=== PATIENT | female | born 1945 | race Caucasian/White ===

== ENCOUNTER → 2018-04-30 10:16 | Outpatient (CLI) | payer MEDICARE, OTHER, SELFPAY ==
--- NOTE | 2018-04-30 | DI.MG.S_ITS ---
BILATERAL DIGITAL SCREENING MAMMOGRAM 3D/2D WITH CAD: 04/30/2018 CLINICAL: Routine screening. Family history of breast cancer. Comparison is made to exams dated: 04/10/2017 mammogram, 04/06/2016 mammogram, and 04/05/2015 mammogram - [facility]. The tissue of both breasts is heterogeneously dense. This may lower the sensitivity of mammography. Current study was also evaluated with a Computer Aided Detection (CAD) system. No significant masses, calcifications, or other findings are seen in either breast. There has been no significant interval change. IMPRESSION: NEGATIVE There is no mammographic evidence of malignancy. A 1 year screening mammogram is recommended. This exam was interpreted at Station ID: [id number]. NOTE: For mammograms, a report in lay terms will be sent to the patient. Approximately 15% of breast malignancies will not be visualized mammographically. In the management of a palpable breast mass, a negative mammogram must not discourage biopsy of a clinically suspicious lesion. Electronically Signed By: Mary Jo mathews/dean:04/30/2018 10:56:38 letter sent: Normal Exam ACR BI-RADS Category 1: Negative 3341F
== END ==
PROVIDERS: Family Provider Physician Assistant; PCP Physician Assistant; Visit Provider Physician Assistant
DX: Z12.31 Encounter for screening mammogram for malignant neoplasm of breast (principal); Z80.3 Family history of malignant neoplasm of breast
CPT/HCPCS: 77063; 77067

== ENCOUNTER → 2019-02-28 08:03 | Outpatient (CLI) | payer MEDICARE, OTHER, SELFPAY ==
--- NOTE | 2019-02-28 | DI.US.S_ITS ---
ULTRASOUND OF LEFT BREAST: 02/28/2019 CLINICAL: Focal left breast pain. Comparison is made to exams dated: 02/28/2019 mammogram, 04/30/2018 mammogram, 04/10/2017 mammogram, 04/06/2016 mammogram, and 04/05/2015 mammogram - [facility]. Color flow and real-time ultrasound of the left breast were performed. Martinez scale images of the real-time examination were reviewed. No abnormalities were seen sonographically in the left breast. incidental note of a few subareolar ectatic ducts without internal debris or intraluminal filling defects. This is likely physiologic. IMPRESSION: BENIGN There is no sonographic evidence of malignancy. There is no abnormality seen in the left breast to correspond with the area of clinical concern and pain in the sub-areolar depth, however, clinical followup is recommended for persistent symptoms. A 1 year screening mammogram is recommended. This exam was interpreted at Station ID: [id number]. Electronically Signed By: Manish Randall M.D. at/:02/28/2019 09:40:54 letter sent: Normal Exam Ultrasound BI-RADS: 2 Benign
--- NOTE | 2019-02-28 | DI.MG.S_ITS ---
BILATERAL DIGITAL DIAGNOSTIC MAMMOGRAM 3D/2D: 02/28/2019 CLINICAL: Left breast pain. Comparison is made to exams dated: 04/30/2018 mammogram, 04/10/2017 mammogram, and 04/06/2016 mammogram - [facility]. The tissue of both breasts is heterogeneously dense. This may lower the sensitivity of mammography. No significant masses, calcifications, or other findings are seen in either breast. IMPRESSION: INCOMPLETE: NEEDS ADDITIONAL IMAGING EVALUATION There is no abnormality seen in the left breast to correspond with the area of clinical concern and pain indicated by triangular marker in the sub-areolar depth, however, ultrasound is recommended which is scheduled to immediately follow this exam. This exam was interpreted at Station ID: [id number]. NOTE: For mammograms, a report in lay terms will be sent to the patient. Approximately 15% of breast malignancies will not be visualized mammographically. In the management of a palpable breast mass, a negative mammogram must not discourage biopsy of a clinically suspicious lesion. Electronically Signed By: Manish Randall M.D. aty/:02/28/2019 09:01:24 ACR BI-RADS Category 0: Incomplete 3340F
== END ==
PROVIDERS: Family Provider Physician Assistant; PCP Physician Assistant; Visit Provider Internal Medicine
DX: R92.8 Other abnormal and inconclusive findings on diagnostic imaging of breast (principal); N64.4 Mastodynia
CPT/HCPCS: 76642; 77066; G0279

== ENCOUNTER → 2019-04-01 13:21 | Outpatient (CLI) | payer MEDICARE, OTHER, SELFPAY ==
[2019-04-03 16:35] LABS: Cancer (Carbohydrate) Ag 19-9 16 U/mL (< 34)
== END ==
PROVIDERS: Family Provider Physician Assistant; PCP Physician Assistant; Visit Provider Internal Medicine
DX: Z80.0 Family history of malignant neoplasm of digestive organs (principal)
CPT/HCPCS: 36415; 86301

== ENCOUNTER → 2019-10-07 17:15 | Outpatient (ROUT) | payer MEDICARE, OTHER, SELFPAY ==
[2019-10-07 17:26] LABS: Add Manual Diff / Slide Review NO; Basophils Absolute Auto 100 /uL (0-100); Basophils Percent Auto 0.9 % (0-2); Eosinophils Absolute Auto 0 /uL (0-450); Eosinophils Percent Auto 0.8 % (2-4); Hematocrit 41.3 % (36-46); Hemoglobin 13.9 g/dL (12.0-16.0); Lymphocytes Absolute Auto 1500 /uL (1100-4500); Lymphocytes Percent Auto 23.7 % (25-40); Mean Corpuscular HGB Conc 33.7 % (30-36); Mean Corpuscular Hemoglobin 31.3 PG (26-34); Mean Corpuscular Volume 92.9 fL (80-100); Monocytes Absolute Auto 500 /uL (0-900); Monocytes Percent Auto 7.6 % (3-14); Neutrophils Absolute Auto 4300 /uL (1500-7000); Platelet Count 249 X10^3/uL (150-400); Red Blood Cell Count 4.45 X10^6/uL (4.0-5.2); White Blood Cell Count 6.3 X10^3/uL (4.5-11.0)
[2019-10-07 17:36] LABS: Alanine Aminotransferase 22 IU/L (<35); Albumin 4.3 g/dL (3.5-5.0); Albumin Globulin Ratio 1.4 (1.0-2.8); Alkaline Phosphatase 67 U/L (38-126); Aspartate Aminotransferase 33 IU/L (14-36); BUN Creatinine Ratio 23.8 (6-22); Bilirubin Total 0.9 mg/dL (0.2-1.3); Blood Urea Nitrogen 19 mg/dL (7-17); Calcium 9.8 mg/dL (8.4-10.2); Carbon Dioxide 28 mmol/L (22-32); Chloride 103 mmol/L (98-107); Cholesterol 239 mg/dL (140-199); Estimated Glomerular Filt Rate > 60.0 mL/min (>60); Glucose 139 mg/dL (80-110); HDL Cholesterol 101 mg/dL (40-60); HEMOLYSIS 15 (0-50); LDL Cholesterol Calculated 112 mg/dL (<100); Potassium 4.5 mmol/L (3.4-5.1); Sodium 138 mmol/L (137-145); Total Protein 7.3 g/dL (6.3-8.2); Triglycerides 130 mg/dL (35-150)
[2019-10-07 18:04] LABS: TSH w/ Reflex to FT4 1.35 uIU/mL (0.47-4.68)
== END ==
PROVIDERS: Family Provider Physician Assistant; PCP Physician Assistant; Visit Provider Physician Assistant
DX: E78.2 Mixed hyperlipidemia (principal); E03.9 Hypothyroidism, unspecified
CPT/HCPCS: 80053; 80061; 84443; 85025

== ENCOUNTER → 2020-03-02 15:05 | Outpatient (CLI) | payer MEDICARE, OTHER, SELFPAY ==
--- NOTE | 2020-03-02 | DI.MG.S_ITS ---
BILATERAL DIGITAL SCREENING MAMMOGRAM 3D/2D WITH CAD: 03/02/2020 CLINICAL: Routine screening. Family history of breast cancer. Comparison is made to exams dated: 02/28/2019 mammogram, 04/30/2018 mammogram, 04/10/2017 mammogram, 02/17/2014 mammogram, and 04/05/2015 mammogram - [facility]. The tissue of both breasts is heterogeneously dense. This may lower the sensitivity of mammography. Current study was also evaluated with a Computer Aided Detection (CAD) system. No significant masses, calcifications, or other findings are seen in either breast. There has been no significant interval change. IMPRESSION: NEGATIVE There is no mammographic evidence of malignancy. A 1 year screening mammogram is recommended. This exam was interpreted at Station ID: [id number]. NOTE: For mammograms, a report in lay terms will be sent to the patient. Approximately 15% of breast malignancies will not be visualized mammographically. In the management of a palpable breast mass, a negative mammogram must not discourage biopsy of a clinically suspicious lesion. Electronically Signed By: Manish barksdale/dean:03/02/2020 17:17:28 letter sent: Normal Exam ACR BI-RADS Category 1: Negative 3341F
== END ==
PROVIDERS: Family Provider Physician Assistant; PCP Physician Assistant; Referring Provider Physician Assistant; Visit Provider Physician Assistant
DX: Z12.31 Encounter for screening mammogram for malignant neoplasm of breast (principal); Z80.3 Family history of malignant neoplasm of breast
CPT/HCPCS: 77063; 77067

== ENCOUNTER → 2020-12-21 14:36 | Outpatient (CLI) | payer MEDICARE, OTHER, SELFPAY ==
[2020-12-21 18:15] LABS: Add Manual Diff / Slide Review NO; Basophils Absolute Auto 0 /uL (0-100); Basophils Percent Auto 0.6 % (0-2); Eosinophils Absolute Auto 100 /uL (0-450); Eosinophils Percent Auto 1.4 % (2-4); Hematocrit 38.5 % (36-46); Hemoglobin 12.9 g/dL (12.0-16.0); Lymphocytes Absolute Auto 1900 /uL (1100-4500); Lymphocytes Percent Auto 27.4 % (25-40); Mean Corpuscular HGB Conc 33.5 % (30-36); Mean Corpuscular Hemoglobin 31.2 PG (26-34); Mean Corpuscular Volume 93.2 fL (80-100); Monocytes Absolute Auto 600 /uL (0-900); Monocytes Percent Auto 8.2 % (3-14); Neutrophils Absolute Auto 4400 /uL (1500-7000); Neutrophils Percent Auto 62.4 % (50-75); Platelet Count 230 X10^3/uL (150-400); Red Blood Cell Count 4.13 X10^6/uL (4.0-5.2); Red Cell Distribution Width 13.4 % (11.6-14.8); White Blood Cell Count 7.1 X10^3/uL (4.5-11.0)
[2020-12-21 18:27] LABS: Alanine Aminotransferase 15 IU/L (<35); Albumin 4.2 g/dL (3.5-5.0); Albumin Globulin Ratio 1.5 (1.0-2.8); Alkaline Phosphatase 61 U/L (38-126); Aspartate Aminotransferase 31 IU/L (14-36); BUN Creatinine Ratio 29.9 (6-22); Bilirubin Total 0.6 mg/dL (0.2-1.3); Blood Urea Nitrogen 23 mg/dL (7-17); Calcium 9.5 mg/dL (8.4-10.2); Carbon Dioxide 24 mmol/L (22-32); Chloride 105 mmol/L (98-107); Cholesterol 237 mg/dL (140-199); Estimated Glomerular Filt Rate > 60.0 mL/min (>60); Globulin 2.8 g/dL (1.7-4.1); Glucose 93 mg/dL (80-110); HDL Cholesterol 105 mg/dL (40-60); HEMOLYSIS < 15 (0-50); LDL Cholesterol Calculated 116 mg/dL (<100); Potassium 4.1 mmol/L (3.4-5.1); Sodium 135 mmol/L (137-145); Triglycerides 78 mg/dL (35-150)
[2020-12-21 18:51] LABS: Vitamin D 25 Hydroxy (D3) 25.2 ng/mL (30.0-100.0)
[2020-12-21 18:56] LABS: TSH w/ Reflex to FT4 1.36 uIU/mL (0.47-4.68)
== END ==
PROVIDERS: Family Provider Physician Assistant; PCP Physician Assistant; Referring Provider Physician Assistant; Visit Provider Physician Assistant
DX: E03.9 Hypothyroidism, unspecified (principal); E55.9 Vitamin D deficiency, unspecified; E78.2 Mixed hyperlipidemia
CPT/HCPCS: 36415; 80053; 80061; 82306; 84443; 85025

== ENCOUNTER → 2021-03-30 15:10 | Outpatient (CLI) | payer MEDICARE, OTHER, SELFPAY ==
--- NOTE | 2021-03-30 15:14 | DI.MG.S_ITS ---
BILATERAL DIGITAL SCREENING MAMMOGRAM 3D/2D WITH CAD: 03/30/2021 CLINICAL: Routine screening. Family history of breast cancer. Comparison is made to exams dated: 03/02/2020 mammogram, 02/28/2019 mammogram, and 04/30/2018 mammogram - [facility]. The tissue of both breasts is heterogeneously dense. This may lower the sensitivity of mammography. Current study was also evaluated with a Computer Aided Detection (CAD) system. There are mole markers on both breasts. No significant masses, calcifications, or other findings are seen in either breast. There has been no significant interval change. IMPRESSION: NEGATIVE There is no mammographic evidence of malignancy. A 1 year screening mammogram is recommended. This exam was interpreted at Station ID: [id number]. NOTE: For mammograms, a report in lay terms will be sent to the patient. Approximately 15% of breast malignancies will not be visualized mammographically. In the management of a palpable breast mass, a negative mammogram must not discourage biopsy of a clinically suspicious lesion. Electronically Signed By: April balbuena/dean:03/30/2021 17:47:12 letter sent: Normal Exam ACR BI-RADS Category 1: Negative 3341F
== END ==
PROVIDERS: Family Provider Physician Assistant; PCP Physician Assistant; Referring Provider Physician Assistant; Visit Provider Physician Assistant
DX: Z12.31 Encounter for screening mammogram for malignant neoplasm of breast (principal); Z80.3 Family history of malignant neoplasm of breast
CPT/HCPCS: 77063; 77067

== ENCOUNTER → 2022-01-20 14:29 | Outpatient (CLI) | payer MEDICARE, OTHER, SELFPAY | PROVIDERS: Family Provider Physician Assistant; PCP Physician Assistant; Referring Provider Physician Assistant; Visit Provider Physician Assistant | DX: Z78.0 Asymptomatic menopausal state (principal); Z13.820 Encounter for screening for osteoporosis; M85.851 Other specified disorders of bone density and structure, right thigh; Z79.890 Hormone replacement therapy | CPT/HCPCS: 77080 ==

== ENCOUNTER → 2022-04-04 14:41 | Outpatient (CLI) | payer MEDICARE, OTHER, SELFPAY ==
--- NOTE | 2022-04-04 | DI.MG.S_ITS ---
BILATERAL DIGITAL SCREENING MAMMOGRAM 3D/2D WITH CAD: 04/04/2022 CLINICAL: Routine screening. Family history of breast cancer. Comparison is made to exams dated: 03/30/2021 mammogram, 03/02/2020 mammogram, and 02/28/2019 mammogram - [facility]. The tissue of both breasts is heterogeneously dense. This may lower the sensitivity of mammography. Current study was also evaluated with a Computer Aided Detection (CAD) system. There are mole markers on both breasts. No significant masses, calcifications, or other findings are seen in either breast. There has been no significant interval change. IMPRESSION: NEGATIVE There is no mammographic evidence of malignancy. A 1 year screening mammogram is recommended. Based on the Tyrer Cuzick model (a risk assessment model) the patient's lifetime risk is 7.3% and her 10 year risk is 0.0%. According to the ACR, ACS, and NCCN guidelines, an annual breast MRI exam along with mammogram is recommended if the patient's lifetime risk is 20% or greater. This exam was interpreted at Station ID: [id number]. NOTE: For mammograms, a report in lay terms will be sent to the patient. Approximately 15% of breast malignancies will not be visualized mammographically. In the management of a palpable breast mass, a negative mammogram must not discourage biopsy of a clinically suspicious lesion. Electronically Signed By: Rene zheng/dean:04/05/2022 09:08:34 letter sent: Normal Exam ACR BI-RADS Category 1: Negative 3341F
== END ==
PROVIDERS: Family Provider Physician Assistant; PCP Physician Assistant; Referring Provider Physician Assistant; Visit Provider Physician Assistant
DX: Z12.31 Encounter for screening mammogram for malignant neoplasm of breast (principal); Z80.3 Family history of malignant neoplasm of breast
CPT/HCPCS: 77063; 77067

== ENCOUNTER → 2023-01-02 09:58 | Outpatient (CLI) | payer MEDICARE, OTHER, SELFPAY ==
[2023-01-02 10:42] LABS: Alanine Aminotransferase 16 IU/L (<35); Albumin 4.2 g/dL (3.5-5.0); Albumin Globulin Ratio 1.2 (1.0-2.8); Alkaline Phosphatase 63 U/L (38-126); Aspartate Aminotransferase 24 IU/L (14-36); BUN Creatinine Ratio 20.5 (6-22); Bilirubin Total 1.1 mg/dL (0.2-1.3); Blood Urea Nitrogen 18 mg/dL (7-17); Calcium 9.4 mg/dL (8.4-10.2); Carbon Dioxide 32 mmol/L (22-32); Chloride 104 mmol/L (98-107); Cholesterol 260 mg/dL (140-199); Estimated Glomerular Filt Rate > 60 mL/min (>60); Globulin 3.4 g/dL (1.7-4.1); Glucose 104 mg/dL (80-110); HDL Cholesterol 107 mg/dL (40-60); HEMOLYSIS < 15 (0-50); LDL Cholesterol Calculated 132 mg/dL (<100); Potassium 4.2 mmol/L (3.4-5.1); Sodium 138 mmol/L (137-145); Total Protein 7.6 g/dL (6.3-8.2); Triglycerides 104 mg/dL (35-150)
[2023-01-02 10:55] LABS: Vitamin D 25 Hydroxy (D3) 23.6 ng/mL (30.0-100.0)
[2023-01-02 11:09] LABS: Thyroid Stimulating Hormone 1.16 uIU/mL (0.47-4.68)
[2023-01-02 11:27] LABS: Hep C Virus Ab w/Reflex Quant NEGATIVE s/c (NEGATIVE)
== END ==
PROVIDERS: Family Provider Physician Assistant; PCP Nurse Practitioner; Referring Provider Nurse Practitioner; Visit Provider Nurse Practitioner
DX: E03.9 Hypothyroidism, unspecified (principal); E55.9 Vitamin D deficiency, unspecified; Z11.59 Encounter for screening for other viral diseases; E78.5 Hyperlipidemia, unspecified; Z79.899 Other long term (current) drug therapy
CPT/HCPCS: 36415; 80053; 80061; 82306; 84439; 84443; 84481; 86803

== ENCOUNTER → 2023-02-28 09:10 | Outpatient (CLI) | payer MEDICARE, OTHER, SELFPAY ==
--- NOTE | 2023-02-28 09:11 | DI.ECHO.S_ITS ---
[facility] +---------+ : : [address] : : : : [id number] : : : : Phone: [phone] Echocardiogram Report + + :Name: DEQUAN GREEN Study Date: 02/28/2023 Height: 65 in : :[facility] ReadingLocation: Weight: 155 lb : : Gender: Female BSA: 1.8 m2 : :: 1945 Age: 77 yrs BP: 135/67 mmHg: :Reason For Study: HYPERTENSION : :Ordering Physician: BARB, : :MAX Performed By: Mellisa Bahena : :Referring: MAX DAY : + + Interpretation Summary The left ventricle is normal in size and wall thickness. The ejection fraction is estimated to be 65-70%. Previous LVEF 60 to 65%. The right ventricle is grossly normal size. The right ventricular systolic function is normal. There is mild to moderate mitral regurgitation. Compared to the prior echo study, there has been an increase in the severity of mitral regurgitation. Previously mild MR. There is moderate tricuspid regurgitation. Previously mild TR. Compared to the prior echo exam, there has been an increase in TR severity. The right ventricular systolic pressure is estimated to be at least 29 mmHg based on an estimated right atrial pressure of 3 mm Hg. Previously 38 mmHg. Compared to the prior echo exam, there has been a decrease in the severity of pulmonary hypertension. Procedure: A two-dimensional transthoracic echocardiogram with color flow and Doppler was performed. The study quality was technically adequate. Comparison is made with the echocardiogram of 08/29/2016. The patient had occasional PVCs during the exam. The patient was in sinus rhythm with heart rates between 57-62 bpm during the exam. Left Ventricle: The left ventricle is normal in size and wall thickness. There is no thrombus. The ejection fraction is estimated to be 65-70%. There are no focal wall motion abnormalities. MV E/A: 0.82 Med Peak E' Osito: 4.8 cm/sec E/E' med: 18.1. Right Ventricle: The right ventricle is grossly normal size. The right ventricular systolic function is normal. Atria: The left atrium is mildly dilated. There has been no significant change since the previous study. Right atrial size is normal. There is no Doppler evidence for an interatrial shunt. Mitral Valve: The mitral valve leaflets appear mildly thickened, but open well. There is mild mitral annular calcification. There is mild to moderate mitral regurgitation. Compared to the prior echo study, there has been an increase in the severity of mitral regurgitation. Aortic Valve: The aortic valve is trileaflet. The aortic valve opens well. There is no aortic valve stenosis. No aortic regurgitation is present. Tricuspid Valve: The tricuspid valve is normal. There is moderate tricuspid regurgitation. The right ventricular systolic pressure is estimated to be at least 29 mmHg based on an estimated right atrial pressure of 3 mm Hg. Compared to the prior echo exam, there has been an increase in TR severity. Compared to the prior echo exam, there has been a decrease in the severity of pulmonary hypertension. Pulmonic Valve: The pulmonic valve is not well visualized. There is trace pulmonic regurgitation. Great Vessels: The aortic root is normal size. The dimensions of the ascending aorta are normal. The IVC is of normal diameter and collapses greater than 50% with a sniff. This suggests a low right atrial pressure of 3 mm Hg. Pericardium/ Pleura There is no pericardial effusion. There is no pleural effusion. MMode/2D Measurements & Calculations LVIDd: 4.7 cm LVOT diam: 1.9 cm LVIDs: 3.0 cm Ao root diam: 2.7 cm FS: 36.4 % asc Aorta Diam: 2.7 cm EPSS: 0.42 cm Ao Arch Diam (Prox Trans): 2.5 cm IVSd: 0.75 cm LVPWd: 0.77 cm LV coulter. diameter/BSA (cm/m^2): 2.7 LV sys. diameter/BSA (cm/m^2): 1.7 LA A2 area: 18.4 cm2 RA long axis: 4.8 cm LA A4 area: 19.1 cm2 RA area: 15.4 cm2 LA length (vol): 5.0 cm RA vol: 42.2 ml LA vol: 60.1 ml RA : 23.7 ml/m2 LA vol index: 33.9 ml/m2 IVC diam: 1.4 cm TAPSE: 2.2 cm Doppler Measurements & Calculations Ao V2 max: 139.0 cm/sec LVOT Max Osito: 99.7 cm/sec Ao V2 mean: 98.7 cm/sec LV V1 max P.0 mmHg Ao max P.7 mmHg LV V1 VTI: 22.0 cm Ao mean P.3 mmHg CIRILO(I,D): 1.9 cm2 Ao V2 VTI: 32.7 cm CIRILO(V,D): 2.0 cm2 sev ratio: 0.67 CIRILO indexed to BSA (cm^2/m^2): 1.0 MV E max osito: 87.0 cm/sec TR max osito: 255.2 cm/sec MV A max osito: 106.7 cm/sec TR max P.0 mmHg MV E/A: 0.82 PA V2 max: 89.0 cm/sec Med Peak E' Osito: 4.8 cm/sec PA V2 mean: 63.8 cm/sec E/E' med: 18.1 PA mean P.8 mmHg Lat Peak E' Osito: 6.1 cm/sec PA pr(Accel): 29.3 mmHg E/E' lat: 14.2 E/e' average: 16.2 MV dec time: 0.21 sec SV(LVOT): 60.7 ml Reading Physician:02:15 PM
== END ==
PROVIDERS: Family Provider Physician Assistant; PCP Nurse Practitioner; Referring Provider Nurse Practitioner; Visit Provider Nurse Practitioner
DX: I10 Essential (primary) hypertension (principal); I08.1 Rheumatic disorders of both mitral and tricuspid valves
CPT/HCPCS: 93306

== ENCOUNTER → 2023-03-12 12:45 | Outpatient (CLI) | payer MEDICARE, OTHER, SELFPAY | PROVIDERS: Family Provider Physician Assistant; PCP Nurse Practitioner; Referring Provider Nurse Practitioner; Visit Provider Nurse Practitioner | DX: I10 Essential (primary) hypertension (principal) | CPT/HCPCS: 93005 ==

== ENCOUNTER → 2023-03-19 15:06 | Outpatient (CLI) | payer MEDICARE, OTHER, SELFPAY | PROVIDERS: Family Provider Physician Assistant; PCP Nurse Practitioner; Referring Provider Nurse Practitioner; Visit Provider Nurse Practitioner | DX: I27.20 Pulmonary hypertension, unspecified (principal); I07.1 Rheumatic tricuspid insufficiency; I34.0 Nonrheumatic mitral (valve) insufficiency | CPT/HCPCS: 93242 ==

== ENCOUNTER 2023-08-31 10:41 | Emergency (ER) | payer MEDICARE, OTHER, SELFPAY ==
[2023-08-31] VITALS (12 sets, daily range): BP systolic 161–193; BP diastolic 70–78; PULSE 54–68; RESP 14–21; TEMP 36.7; O2SAT 96–99; BMI 25.0
--- NOTE | 2023-08-31 10:54 | DI.RAD.S_ITS ---
PROCEDURE: XR CHEST 1V INDICATIONS: chest pain TECHNIQUE: One view of the chest was acquired. COMPARISON: [facility], , CHEST 1 VIEW, 09/04/2017, 15:18. FINDINGS: Surgical changes and devices: None. Lungs and pleura: Lungs are clear. No pleural effusions or pneumothorax. Mediastinum: Mediastinal contours appear normal. Heart size is normal. Bones and chest wall: No suspicious bony lesions. Overlying soft tissues appear unremarkable. IMPRESSION: No acute cardiopulmonary abnormality is seen. Dictated by: Mary Jo Marie M.D. on 08/31/2023 at 12:04 Approved by: Mary Jo Marie M.D. on 08/31/2023 at 12:04
[2023-08-31 11:27] LABS: Add Manual Diff / Slide Review NO; Basophils Absolute Auto 100 /uL (0-100); Basophils Percent Auto 1.1 % (0-2); Eosinophils Absolute Auto 100 /uL (0-450); Eosinophils Percent Auto 0.8 % (2-4); Hematocrit 38.6 % (36-46); Hemoglobin 13.1 g/dL (12.0-16.0); Lymphocytes Absolute Auto 1400 /uL (1100-4500); Lymphocytes Percent Auto 20.6 % (25-40); Mean Corpuscular HGB Conc 33.9 % (30-36); Mean Corpuscular Hemoglobin 31.1 PG (26-34); Mean Corpuscular Volume 91.7 fL (80-100); Monocytes Absolute Auto 600 /uL (0-900); Monocytes Percent Auto 8.5 % (3-14); Neutrophils Absolute Auto 4600 /uL (1500-7000); Platelet Count 234 X10^3/uL (150-400); Red Blood Cell Count 4.21 X10^6/uL (4.0-5.2); Red Cell Distribution Width 14.2 % (11.6-14.8); White Blood Cell Count 6.6 X10^3/uL (4.5-11.0)
[2023-08-31 11:39] LABS: Prothrombin Time 11.5 SECONDS (9.4-12.5)
[2023-08-31 11:41] LABS: PTT Partial Thromboplastin Tim 29 SECONDS (25.1-36.5)
[2023-08-31 11:48] LABS: Alanine Aminotransferase 27 IU/L (<35); Albumin 4.2 g/dL (3.5-5.0); Albumin Globulin Ratio 1.3 (1.0-2.8); Alkaline Phosphatase 105 U/L (38-126); Aspartate Aminotransferase 34 IU/L (14-36); BUN Creatinine Ratio 19.4 (6-22); Bilirubin Total 0.8 mg/dL (0.2-1.3); Blood Urea Nitrogen 20 mg/dL (7-17); Carbon Dioxide 27 mmol/L (22-32); Chloride 104 mmol/L (98-107); Creatine Kinase 62 U/L (30-135); Estimated Glomerular Filt Rate 55 mL/min (>60); Globulin 3.3 g/dL (1.7-4.1); Glucose 100 mg/dL (80-110); HEMOLYSIS < 15 (0-50); Lipase 384 U/L (23-300); Potassium 4.4 mmol/L (3.4-5.1); Sodium 137 mmol/L (137-145); Total Protein 7.5 g/dL (6.3-8.2)
[2023-08-31 11:56] LABS: Troponin I < 0.012 ng/mL (0.01-0.034)
--- NOTE | 2023-08-31 12:02 | ED_ITS ---
HPI - Dizziness General Chief Complaint: Dizziness Stated Complaint: dizziness Time Seen by Provider: 08/31/23 12:02 History of Present Illness HPI Narrative: Patient is 78-year-old female history of hypertension presenting today with dizziness. 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 She is not had vertigo previously she denies any chest pain or palpitations. She says that she was not drinking a lot a water and did not have a copy this morning. She is no numbness tingling or weakness. She has improved but still feels off. She is able to text on her phone without any difficulty. She had no facial droop or difficulty speaking. No fever no chills. 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 01/10/23 04/27/23 calcium carbonate 600 mg calcium 1,200 mg PO DAILY 01/10/23 04/27/23 (1,500 mg) tablet verapamil 180 mg 24 hr 180 mg PO DAILY 05/25/23 capsule,extended release olive leaf extract 250 mg capsule 250 mg PO DAILY 07/10/23 07/10/23 Previous Rx's Medication Instructions Recorded cholecalciferol (vitamin D3) 50 50 mcg PO DAILY #90 caps 01/10/23 mcg (2,000 unit) capsule estradiol 0.01% (0.1 mg/gram) 1 g vaginal 3XW #42.5 grams 01/10/23 vaginal cream (Estrace) Blood pressure cuff #1 ea 01/31/23 olmesartan 40 mg tablet 40 mg PO DAILY #90 tabs 04/24/23 levothyroxine 75 mcg tablet 75 mcg PO DAILY #90 tabs 07/10/23 Allergies Allergy/AdvReac Type Severity Reaction Status Date / Time lisinopril AdvReac Intermediate Cough Verified 07/10/23 09:36 amoxicillin [From Augmentin] AdvReac Mild severe Verified 07/10/23 09:36 diarrhea clavulanic acid AdvReac Mild severe Verified 07/10/23 09:36 [From Augmentin] diarrhea Sulfa (Sulfonamide AdvReac Mild Nausea Verified 07/10/23 09:36 Antibiotics) Patient History Medical History COVID Pre-syncope PVCs (premature ventricular contractions) PAC (premature atrial contraction) SVT (supraventricular tachycardia) Pulmonary hypertension Tricuspid valve regurgitation Mitral valve regurgitation Adverse reaction to lisinopril Hypertension Eczema Carpal tunnel syndrome Mumps Measles Chicken pox Infertility Herpes Endometriosis Vitamin D deficiency Hyperlipidemia Hypothyroidism (acquired) Surgical History Anesthesia H/O right wrist surgery (~10/1999) Lipoma of neck (~02/1992) Pilonidal cyst (~12/1963) Family History Father Lung disease Mother History of heart disease Brother Cancer Grandmother History of heart disease Grandfather Suicide Social History Smoking Status: Never smoker Smoking Status: Never smoker Exam Initial Vital Signs Initial Vital Signs: Vital Signs Pulse Oximetry 98 08/31/23 10:49 GENERAL: Alert very pleasant well-appearing 78-year-old female appears younger than stated age HEENT: Head atraumatic,EOMI, pupils reactive, some nystagmus, face symmetric, moist mucous membranes CARDIOVASCULAR: Regular rate and rhythm without murmurs, rubs or gallops. RESPIRATORY: Breath sounds equal bilaterally, no wheezes rales or rhonchi. ABDOMEN: Soft, nontender. Normoactive bowel sounds all 4 quadrants. No guarding or rebound. EXTREMITIES: Normal range of motion, no clubbing or edema. Neurovascularly intact NEUROLOGICAL: Alert and oriented x4.Normal gait and speech. Cranial nerves II through XII grossly intact. Good [id number], good [id number], strength equal bilaterally, no dysarthria or aphasia, sensation in tact to soft touch bilaterally, no visual changes, no facial droop SKIN: Warm, dry, no laceration, no petechiae, no rashes or lesions. Scores NIH Stroke Scale Level of Conciousness: Alert, keenly responsive Ask month/age: Answers both questions correctly. Open/close eyes, close hand: Performs both tasks correctly Best gaze horizontal: Normal Visual chaparro: No visual loss Facial palsy: Normal symetrical movement Left arm drift: No drift for full 10 sec Right arm drift: No drift for full 10 sec Left leg drift: No drift for full 5 sec Right leg drift: No drift for full 5 sec Limb ataxia: Absent Sensory on face/arms/legs: Normal, no sensory loss Best language: No aphasia, normal Dysarthria: Normal Extinction or inattention: No abnormality Total NIH Stroke scale score: 0 Course Orders Ordered: ED Orders 08/31/23 10:54 XR chest 1V Stat 08/31/23 10:56 EKG-12 Lead Stat 08/31/23 11:10 Complete Blood Count AUTO DIFF Stat Comprehensive Metabolic Panel Stat Lipase Stat Magnesium Stat PTT Partial Thromboplastin Addison Stat Prothrombin Time INR Stat Troponin & CK Cardiac Panel Stat Discontinued Medications Sodium Chloride (Normal Saline 0.9%) 1,000 mls @ 1,000 mls/hr IV BOLUS ONE Stop: 08/31/23 13:06 Last Admin: 08/31/23 12:47 Dose: Not Given Documented By: CTS Vital Signs Vital signs: Vital Signs - 8 hr 08/31/23 11:25 08/31/23 11:25 08/31/23 11:30 Pulse Rate 55 L Respiratory Rate 16 Blood Pressure 174/74 H 175/78 H Pulse Oximetry 98 Oxygen Delivery Method 08/31/23 11:30 08/31/23 12:00 08/31/23 12:01 Pulse Rate 56 L 56 L 56 L Respiratory Rate 17 17 20 Blood Pressure Pulse Oximetry 98 96 96 Oxygen Delivery Method 08/31/23 12:01 08/31/23 12:30 08/31/23 12:31 Pulse Rate 56 L 54 L Respiratory Rate 21 17 Blood Pressure 161/70 H Pulse Oximetry 97 99 Oxygen Delivery Method Room Air 08/31/23 12:31 08/31/23 13:00 08/31/23 13:01 Pulse Rate 54 L 54 L Respiratory Rate 16 14 Blood Pressure 179/76 H Pulse Oximetry 98 98 Oxygen Delivery Method 08/31/23 13:01 Pulse Rate Respiratory Rate Blood Pressure 176/72 H Pulse Oximetry Oxygen Delivery Method MDM - Dizziness Lab Data 08/31/23 11:10 08/31/23 11:10 Labs: Lab Results 08/31/23 Range/Units 11:10 WBC 6.6 (4.5-11.0) X10^3/uL RBC 4.21 (4.0-5.2) X10^6/uL Hgb 13.1 (12.0-16.0) g/dL Hct 38.6 (36-46) % MCV 91.7 (80-100) fL MCH 31.1 (26-34) PG MCHC 33.9 (30-36) % RDW 14.2 (11.6-14.8) % Plt Count 234 (150-400) X10^3/uL Neut % (Auto) 69.0 (50-75) % Lymph % (Auto) 20.6 L (25-40) % [place] % (Auto) 8.5 (3-14) % Eos % (Auto) 0.8 L (2-4) % Baso % (Auto) 1.1 (0-2) % Neut # (Auto) 4600 (4297-4900) /uL Lymph # (Auto) 1400 (3894-3923) /uL [place] # (Auto) 600 (0-900) /uL Eos # (Auto) 100 (0-450) /uL Baso # (Auto) 100 (0-100) /uL PT 11.5 (9.4-12.5) SECONDS INR 1.0 (0.9-1.3) APTT 29 (25.1-36.5) SECONDS Sodium 137 (137-145) mmol/L Potassium 4.4 (3.4-5.1) mmol/L Chloride 104 (98-107) mmol/L Carbon Dioxide 27 (22-32) mmol/L BUN 20 H (7-17) mg/dL Creatinine 1.03 (0.52-1.04) mg/dL Estimated GFR 55 L (>60) mL/min BUN/Creatinine Ratio 19.4 (6-22) Glucose 100 (80-110) mg/dL Calcium 10.0 (8.4-10.2) mg/dL Magnesium 2.0 (1.6-2.3) mg/dL Total Bilirubin 0.8 (0.2-1.3) mg/dL AST 34 (14-36) IU/L ALT 27 (<35) IU/L Alkaline Phosphatase 105 (38-126) U/L Total Creatine Kinase 62 (30-135) U/L Troponin I < 0.012 (0.01-0.034) ng/mL Total Protein 7.5 (6.3-8.2) g/dL Albumin 4.2 (3.5-5.0) g/dL Globulin 3.3 (1.7-4.1) g/dL Albumin/Globulin Ratio 1.3 (1.0-2.8) Lipase 384 H (23-300) U/L Imaging Data Chest x-ray: Radiologist's Impression: PROCEDURE: XR CHEST 1V INDICATIONS: chest pain TECHNIQUE: One view of the chest was acquired. COMPARISON: [facility], , CHEST 1 VIEW, 09/04/2017, 15:18. FINDINGS: Surgical changes and devices: None. Lungs and pleura: Lungs are clear. No pleural effusions or pneumothorax. Mediastinum: Mediastinal contours appear normal. Heart size is normal. Bones and chest wall: No suspicious bony lesions. Overlying soft tissues appear unremarkable. IMPRESSION: No acute cardiopulmonary abnormality is seen. Dictated by: Mary Jo Marie M.D. on 08/31/2023 at 12:04 Approved by: Mary Jo Marie M.D. on 08/31/2023 at 12:0 ECG Data Interpretation: Normal sinus rhythm rate [address] changes no T-wave inversions PVC noted MDM Narrative Medical decision making narrative: Patient 78-year-old female who overall appears well developed sudden onset of dizziness today. She says that last week she stumbled and tripped but does not think but she was dizzy. Today she just felt very dizzy which has quickly resolved. She overall says it is getting much better she is mild nystagmus on exam. She was offered IV fluids for possible dehydration although her labs do not indicate significant dehydration. She wanted to drink water instead. She is no focal deficits. No concern for posterior stroke. Low suspicion for vertigo. She is ambulatory in the ED with significant assistance or problem. Blood work has been reviewed At this time no need for imaging Discharge Plan Departure Patient Disposition: Home Clinical Impression: Dizziness Instructions: DI for Dizziness-Nonvertigo Activity Restrictions/Additional Instructions: *You have been diagnosed with possible mild dehydration *What to do: At this time I think you are likely a little dizzy today because of some dehydration. Please be sure to stay hydrated water and eat. Blood work today is overall reassuring *Continue to take medications as directed *Follow up with your primary care provider in 2-3 days or call [phone] *Return to ER if you should have recurrent dizziness falls chest pain numbness tingling weakness difficulty or any new, worsening or concerning symptoms Prescriptions: No Action olmesartan 40 mg tablet 40 mg PO DAILY Qty: 90 3RF Rx Instructions: Take 40mg at bedtime daily for blood pressure. verapamil 180 mg capsule,ext rel. 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
--- NOTE | 2023-08-31 12:08 | PC.NURSE ---
Dr. bell at bedside
== END 2023-08-31 13:28 | disposition home or self-care (01) ==
PROVIDERS: Emergency Provider Emergency Medicine; Family Provider Physician Assistant; PCP Nurse Practitioner
DX: R42 Dizziness and giddiness (principal); R29.700 NIHSS score 0; I10 Essential (primary) hypertension; E78.5 Hyperlipidemia, unspecified; E03.9 Hypothyroidism, unspecified
CPT/HCPCS: 36415; 71045; 80053; 82550; 83690; 83735; 84484; 85025; 85610; 85730; 93005; 93010; 96360; 99283; 99284

== ENCOUNTER → 2023-09-10 08:36 | Outpatient (CLI) | payer MEDICARE, OTHER, SELFPAY ==
--- NOTE | 2023-09-10 08:37 | DI.US.S_ITS ---
PROCEDURE: US ABDOMEN LIMITED INDICATIONS: elevated lipase TECHNIQUE: Real-time scanning was performed of the abdominal and retroperitoneal organs, with image documentation. COMPARISON: [facility], CT, PE STUDY (CTA CHEST), 06/16/2010, 14:22. FINDINGS: Liver: Liver is normal in size and homogeneous in echotexture. Gallbladder: There is a 0.2 mm polyp in the posterior wall of the gallbladder. No gallstones. No gallbladder wall thickening, pericholecystic fluid or sonographic Ling's sign. Biliary ducts: Intrahepatic bile ducts are non-dilated. Extrahepatic bile duct caliber measures 3.5 mm. Normal is 6-7 mm or less in diameter, or 10 mm or less post-cholecystectomy. Pancreas: Visualized portions of the pancreas are sonographically normal. Miscellaneous: No free abdominal fluid. IMPRESSION: 1. A small polyp in the posterior wall of the gallbladder. Follow-up ultrasound is suggested in 6 months, 1 year and 2 years. 2. No gallstones. 3. Visualized pancreas is grossly normal. 4. No fluid collections in abdomen. Dictated by: Avni Craig M.D. on 09/10/2023 at 11:01 Approved by: Avni Craig M.D. on 09/10/2023 at 11:10
== END ==
PROVIDERS: Family Provider Physician Assistant; PCP Nurse Practitioner; Referring Provider Nurse Practitioner; Visit Provider Nurse Practitioner
DX: K82.4 Cholesterolosis of gallbladder (principal); R74.8 Abnormal levels of other serum enzymes; Z80.0 Family history of malignant neoplasm of digestive organs
CPT/HCPCS: 76705

== ENCOUNTER → 2023-09-20 09:44 | Outpatient (CLI) | payer MEDICARE, OTHER, SELFPAY ==
--- NOTE | 2023-09-20 10:30 | DI.CT.S_ITS ---
PROCEDURE: CT ABDOMEN PANCREATIC PROTOCOL INDICATIONS: R/O pancreatic cancer. Family history and elevated lipase TECHNIQUE: Both before and after the administration of intravenous contrast, 3 mm thick pancreatic-phase images acquired from the diaphragm to the iliac crests. 3 mm thick coronal and sagittal reformats were performed. For radiation dose reduction, the following was used: automated exposure control, adjustment of mA and/or kV according to patient size. COMPARISON: None. FINDINGS: Image quality: Diagnostic. Lung bases: Mild septal thickening and subpleural scarring at both lung bases. Mild cardiomegaly. No hiatal hernia. ABDOMEN: Pancreas: Uniform attenuation and enhancement. No masses, calcifications, ductal dilatation, or peripancreatic fluid collection. Liver: Mild hepatic steatosis and occasional subcentimeter hypodensities, presumably tiny cysts. Gallbladder: Normal. No calcifications. Biliary ducts: No biliary dilation. Adrenal Glands: No nodules. Spleen: Size is within normal limits. Kidneys and Ureters: Symmetric enhancement. No cortical cysts or masses. There is mild symmetric prominence of the intrarenal collecting systems and extrarenal pelves. No hydroureter distal to the ureteral pelvic junction and no visible ureteral calcification. Stomach and Bowel: Stomach and small bowel loops are normal caliber. Mildly increased quantity of solid stool present. Long segments of borderline wall thickening, particularly in the descending colon without significant pericolonic inflammatory changes. No diverticula visible. Peritoneum: No abnormal intraperitoneal fluid. No free air. Ventral Wall: No hernia. Abdominal Nodes: No retroperitoneal or mesenteric adenopathy by size criteria. Vessels: Aorta and inferior vena cava are normal in size. Bones: No aggressive osseous abnormality. IMPRESSION: 1. Normal pancreas. 2. Mild hepatic steatosis. 3. Borderline questionable colon wall thickening. Infectious or inflammatory colitis cannot be excluded and clinical correlation is suggested. This could also be due to luminal under distension. 4. Mild symmetric bilateral renal collecting system prominence without visible obstruction/calcification. Dictated by: April Baca M.D. on 09/20/2023 at 16:45 Approved by: April Baca M.D. on 09/20/2023 at 17:01
== END ==
PROVIDERS: Family Provider Physician Assistant; PCP Nurse Practitioner; Referring Provider Nurse Practitioner; Visit Provider Nurse Practitioner
DX: K76.0 Fatty (change of) liver, not elsewhere classified (principal); K82.4 Cholesterolosis of gallbladder; R74.8 Abnormal levels of other serum enzymes; Z80.0 Family history of malignant neoplasm of digestive organs
CPT/HCPCS: 74170; Q9967

== ENCOUNTER → 2023-10-13 10:10 | Outpatient (CLI) | payer MEDICARE, OTHER, SELFPAY ==
[2023-10-13 12:06] LABS: Cholesterol 234 mg/dL (140-199); HDL Cholesterol 105 mg/dL (40-60); LDL Cholesterol Calculated 113 mg/dL (<100); Triglycerides 79 mg/dL (35-150)
[2023-10-13 12:07] LABS: Creatinine Urine Random 196.6 mg/dL
[2023-10-13 12:13] LABS: Lipase 286 U/L (23-300); Microalbumi Creatinin Ratio Ur 5.5 ug/mg CR (<30); Microalbumin Urine Random 1.1 mg/dL (0-1.6)
[2023-10-13 12:39] LABS: TSH w/ Reflex to FT4 0.91 uIU/mL (0.47-4.68)
== END ==
LOC: LAB 10:12
PROVIDERS: Family Medicine; Family Provider Physician Assistant; PCP Nurse Practitioner; Referring Provider Nurse Practitioner; Visit Provider Nurse Practitioner
DX: K82.4 Cholesterolosis of gallbladder (principal); E78.5 Hyperlipidemia, unspecified; R74.8 Abnormal levels of other serum enzymes; E03.9 Hypothyroidism, unspecified; I10 Essential (primary) hypertension; I47.10 Supraventricular tachycardia, unspecified
CPT/HCPCS: 36415; 80061; 82043; 82570; 83690; 84443

== ENCOUNTER → 2023-11-11 14:09 | Outpatient (CLI) | payer MEDICARE, OTHER, SELFPAY ==
--- NOTE | 2023-11-11 14:11 | DI.MRI.S_ITS ---
PROCEDURE: MR ABDOMEN WO/W CON INDICATIONS: R/o malignancy; gallbadder polyp TECHNIQUE: Coronal HASTE, axial 2D FLASH in- and [id number]; axial breath-hold T2 FSE. Dynamic axial VIBE during the administration of contrast; post-contrast coronal VIBE or 2D FLASH with fat saturation from the hepatic dome to the iliac crests. Optional diffusion weighted imaging and ADC may be performed. COMPARISON: [facility], CT, CT ABDOMEN PANCREATIC PROTOCOL, 09/20/2023, 10:03. FINDINGS: Image quality: Diagnostic. Lung bases: No pleural or pericardial effusions. Liver: Normal liver with a smooth margin. Gallbladder: On these images, gallbladder wall thickness is normal. There is suggestion of a rounded hypodensity near the gallbladder neck along the posterior wall, however 2 mm polyp may be below the limits of resolution on this scan. There is no pericholecystic fluid. Biliary ducts: No biliary dilation. Pancreas: No pancreatic duct dilatation. There is a 6 mm cyst at the dorsal pancreatic tail without definite connection to the pancreatic duct. Spleen: Size is within normal limits. Adrenal Glands: No adrenal nodules. Kidneys and Ureters: Bilateral parapelvic cysts. Symmetric renal enhancement. Stomach and Bowel: Stomach and visible loops of bowel are normal. Peritoneum: No abnormal intraperitoneal fluid. No free air. Ventral Wall: No hernia. Abdominal Nodes: No retroperitoneal or mesenteric adenopathy by size criteria. Vessels: Aorta and inferior vena cava are normal in size. Bones: No aggressive osseous abnormality. IMPRESSION: Normal MR appearance of the gallbladder without evidence of malignancy or large polyp. Follow-up with ultrasound for continued surveillance. 6 mm nonspecific pancreatic tail cyst. Follow-up pancreatic protocol MRI in 12 months for continued surveillance of this probably benign cyst. Dictated by: April Baca M.D. on 11/11/2023 at 18:30 Approved by: April Baca M.D. on 11/11/2023 at 18:49
== END ==
LOC: MRI 14:09
PROVIDERS: Family Provider Physician Assistant; PCP Nurse Practitioner; Referring Provider Nurse Practitioner; Visit Provider Nurse Practitioner
DX: K82.4 Cholesterolosis of gallbladder (principal); K86.2 Cyst of pancreas; N28.1 Cyst of kidney, acquired
CPT/HCPCS: 74183; A9579

== ENCOUNTER → 2024-02-26 16:23 | Outpatient (CLI) | payer MEDICARE, OTHER, SELFPAY ==
--- NOTE | 2024-02-26 16:24 | DI.MG.S_ITS ---
BILATERAL DIGITAL SCREENING MAMMOGRAM 3D/2D WITH CAD: 02/26/2024 CLINICAL: Routine screening. Family history of breast cancer. Comparison is made to exams dated: 04/04/2022 mammogram, 03/30/2021 mammogram, and 03/02/2020 mammogram - [facility]. Both breasts are heterogeneously dense, which may obscure small masses (category c / 51-75% glandular tissue). Current study was also evaluated with a Computer Aided Detection (CAD) system. No significant masses, calcifications, or other findings are seen in either breast. There has been no significant interval change. IMPRESSION: NEGATIVE There is no mammographic evidence of malignancy. A 1 year screening mammogram is recommended. Based on the Tyrer Cuzick model (a risk assessment model) the patient's lifetime risk is 5.5% and her 10 year risk is 0.0%. According to the ACR, ACS, and NCCN guidelines, an annual breast MRI exam along with mammogram is recommended if the patient's lifetime risk is 20% or greater. This exam was interpreted at Station ID: [id number]. NOTE: For mammograms, a report in lay terms will be sent to the patient. Approximately 15% of breast malignancies will not be visualized mammographically. In the management of a palpable breast mass, a negative mammogram must not discourage biopsy of a clinically suspicious lesion. Electronically Signed By: Ronak birch/dean:02/27/2024 10:17:20 letter sent: Normal Exam ACR BI-RADS Category 1: Negative [id number]
--- NOTE | 2024-02-26 16:24 | DI.US.S_ITS ---
PROCEDURE: US ABDOMEN LIMITED INDICATIONS: 6 month follow up TECHNIQUE: Real-time scanning was performed of the abdominal and retroperitoneal organs, with image documentation. COMPARISON: [facility], US, US ABDOMEN LIMITED, 09/10/2023, 9:07. FINDINGS: Liver: Liver is normal in size and homogeneous in echotexture. Gallbladder: No gallstones. No wall thickening. No pericholecystic edema. Negative sonographic Ling's sign. Gallbladder polyp measuring 3 millimeters, stable from prior. Biliary ducts: Intrahepatic bile ducts are non-dilated. Extrahepatic bile duct caliber measures 5 mm. Normal is 6-7 mm or less in diameter, or 10 mm or less post-cholecystectomy. Pancreas: Visualized portions of the pancreas are sonographically normal. Miscellaneous: No free abdominal fluid. IMPRESSION: No cholelithiasis or sonographic evidence of acute cholecystitis. Stable 3 mm gallbladder polyp, benign. No further imaging follow-up needed per U consensus guidelines. Approved by: Lorene Blair M.D.,Ph.D. on 02/27/2024 at 8:50
== END ==
PROVIDERS: Family Provider Physician Assistant; PCP Nurse Practitioner; Referring Provider Nurse Practitioner; Visit Provider Nurse Practitioner
DX: Z12.31 Encounter for screening mammogram for malignant neoplasm of breast (principal); Z80.3 Family history of malignant neoplasm of breast; R92.333 Mammographic heterogeneous density, bilateral breasts; K82.4 Cholesterolosis of gallbladder; R93.2 Abnormal findings on diagnostic imaging of liver and biliary tract
CPT/HCPCS: 76705; 77063; 77067

== ENCOUNTER → 2024-03-07 07:54 | Outpatient (CLI) | payer MEDICARE, OTHER, SELFPAY ==
[2024-03-07 09:19] LABS: Alanine Aminotransferase 13 IU/L (<35); Albumin Globulin Ratio 1.5 (1.0-2.8); Alkaline Phosphatase 63 U/L (38-126); Aspartate Aminotransferase 22 IU/L (14-36); BUN Creatinine Ratio 20.8 (6-22); Blood Urea Nitrogen 20 mg/dL (7-17); Calcium 9.5 mg/dL (8.4-10.2); Carbon Dioxide 25 mmol/L (22-32); Chloride 112 mmol/L (98-107); Cholesterol 222 mg/dL (140-199); Estimated Glomerular Filt Rate 60 mL/min (>60); Globulin 2.6 g/dL (1.7-4.1); Glucose 97 mg/dL (80-110); HDL Cholesterol 106 mg/dL (40-60); HEMOLYSIS < 15 (0-50); LDL Cholesterol Calculated 100 mg/dL (<100); Potassium 4.8 mmol/L (3.4-5.1); Sodium 140 mmol/L (137-145); Total Protein 6.6 g/dL (6.3-8.2); Triglycerides 79 mg/dL (35-150)
[2024-03-07 09:28] LABS: Creatinine Urine Random 162.27 mg/dL
[2024-03-07 09:33] LABS: Microalbumin Urine Random 2.1 mg/dL (0-1.6)
[2024-03-07 09:47] LABS: Thyroid Stimulating Hormone 1.18 uIU/mL (0.47-4.68)
--- NOTE | 2024-03-07 14:08 | DI.RAD.S_ITS ---
PROCEDURE: XR DEXA AXIAL SKELETON INDICATIONS: osteoporosis COMPARISON: [facility], , XR DEXA AXIAL SKELETON, 01/20/2022, 14:52. [facility], CR, DEXA AXIAL SKELETON, 09/02/2015, 14:18. FINDINGS: Lumbar Spine: Bone mineral density 1.113 g/cm2, T score 0.6, no statistically significant change compared to prior. Left Hip: Bone mineral density 0.965 g/cm2, T score 0.2, statistically significant increase in bone mineral density by 7.4%. Left Femoral Neck: Bone mineral density 0.784 g/cm2, T score -0.6. Right Hip: Bone mineral density 0.945 g/cm2, T score 0.0, statistically significant increase in bone mineral density by 4.8%. Right Femoral Neck: Bone mineral density 0.748 g/cm2, T score -0.9. Fracture Risk Calculation (when applicable): 10-year fracture risk of a major osteoporotic fracture 19% and of a hip fracture 9.4%. (T score greater or equal to -1.0 to: NORMAL) (T score from -1.1 to -2.4: OSTEOPENIA) (T score less than or equal to -2.5: OSTEOPOROSIS) IMPRESSION: Normal bone mineral density. Follow-up guidelines as follows: Osteoporosis: Consider a repeat DEXA and Vertebral Fracture Assessment (VFA) exam in 2 years or sooner if medically necessary, to reassess this patient's status. Osteopenia: Consider a repeat DEXA in 2-3 years to reassess this patient's status, or if there is a new clinical indication. Normal: Consider a repeat DEXA in 5 years or sooner, or if there is a new clinical indication. All treatment decisions require clinical judgment and consideration of individual patient factors, including patient preferences, comorbidities, previous drug use, risk factors not captured in the FRAX model (e.g., frailty, falls, vitamin D deficiency, increased bone turnover, interval significant decline in bone density ) and possible under- or over-estimation of fracture risk by FRAX. In addition, the NOF Guide recommends that FDA-approved medical therapies be considered in postmenopausal women and men age >= 50 years with a: * Hip or vertebral (clinical or morphometric) fracture * T-score of <=-2.5 at the spine or hip * Ten-year fracture probability by FRAX of >= 3% for hip fracture or >=20% for major osteoporotic fracture. People with diagnosed cases of osteoporosis or at high risk for fracture should have regular bone mineral density tests. For patients eligible for Medicare, routine testing is allowed once every 2 years. The testing frequency can be increased to one year for patients who have rapidly progressing disease, those who are receiving or discontinuing medical therapy to restore bone mass, or have additional risk factors. Dictated by: Efrem Rosa M.D. on 03/07/2024 at 15:40 Approved by: Efrem Rosa M.D. on 03/07/2024 at 15:42
== END ==
PROVIDERS: Family Provider Physician Assistant; PCP Nurse Practitioner; Referring Provider Nurse Practitioner; Visit Provider Nurse Practitioner
DX: I10 Essential (primary) hypertension (principal); M81.0 Age-related osteoporosis without current pathological fracture; E78.5 Hyperlipidemia, unspecified; E03.9 Hypothyroidism, unspecified; Z79.899 Other long term (current) drug therapy
CPT/HCPCS: 36415; 77080; 80053; 80061; 82043; 82570; 84443

== ENCOUNTER → 2024-03-26 08:19 | Outpatient (CLI) | payer MEDICARE, OTHER, SELFPAY ==
[2024-03-26 10:08] LABS: BUN Creatinine Ratio 23.6 (6-22); Blood Urea Nitrogen 25 mg/dL (7-17); Calcium 9.4 mg/dL (8.4-10.2); Carbon Dioxide 27 mmol/L (22-32); Chloride 106 mmol/L (98-107); Estimated Glomerular Filt Rate 53 mL/min (>60); Glucose 94 mg/dL (80-110); HEMOLYSIS < 15 (0-50); Potassium 4.9 mmol/L (3.4-5.1); Sodium 137 mmol/L (137-145)
== END ==
LOC: LAB 08:20
PROVIDERS: Family Provider Physician Assistant; PCP Nurse Practitioner; Referring Provider Nurse Practitioner; Visit Provider Nurse Practitioner
DX: E87.8 Other disorders of electrolyte and fluid balance, not elsewhere classified (principal); R79.9 Abnormal finding of blood chemistry, unspecified
CPT/HCPCS: 36415; 80048

== ENCOUNTER → 2024-05-12 13:36 | Outpatient (CLI) | payer MEDICARE, OTHER, SELFPAY ==
[2024-05-12 15:03] LABS: BUN Creatinine Ratio 19.2 (6-22); Blood Urea Nitrogen 20 mg/dL (7-17); Calcium 10.3 mg/dL (8.4-10.2); Carbon Dioxide 25 mmol/L (22-32); Chloride 104 mmol/L (98-107); Estimated Glomerular Filt Rate 54 mL/min (>60); Glucose 90 mg/dL (80-110); HEMOLYSIS < 15 (0-50); Potassium 4.9 mmol/L (3.4-5.1); Sodium 135 mmol/L (137-145)
== END ==
PROVIDERS: Nurse Practitioner; Family Provider Physician Assistant; PCP Family Medicine; Referring Provider Family Medicine; Visit Provider Family Medicine
DX: N18.31 Chronic kidney disease, stage 3a (principal)
CPT/HCPCS: 36415; 80048

== ENCOUNTER → 2024-10-22 13:44 | Outpatient (CLI) | payer MEDICARE, OTHER, SELFPAY ==
--- NOTE | 2024-10-22 13:45 | DI.MRI.S_ITS ---
PROCEDURE: MR AB PANCREATIC WITHIN WITHOUT IV CONTRAST/MRCP PROTOCOL INDICATIONS: 12 months surveillance - pancreatic cyst TECHNIQUE: Coronal HASTE through the abdomen, axial 2-D FLASH in- and [id number], and breath-hold T2 FSE with fat saturation through the biliary system and pancreas. Oblique coronal and axial thin-slice HASTE, radial thick-slab HASTE centered on the extrahepatic bile ducts. Axial T1 vibe pre and postcontrast, postcontrast coronal T1 vibe. Restricted diffusion sequences. COMPARISON: [facility], US, US ABDOMEN LIMITED, 02/26/2024, 16:32. [facility], MR, MR ABDOMEN WO/W CON, 11/11/2023, 14:43. [facility], CT, CT ABDOMEN PANCREATIC PROTOCOL, 09/20/2023, 10:03. FINDINGS: Image quality: Diagnostic. Gallbladder: No obvious gallstones. No mass seen. No thickening appreciated. No pericholecystic fluid. Biliary ducts: No biliary dilation. Pancreas: No ductal dilation. No mass. Tiny cyst at the tail the pancreas measuring 0.5 cm, (5/6), previously 0.6 cm. OTHER: Lung bases: Unremarkable. Liver: No solid mass. Spleen: Size is within normal limits. Adrenal Glands: No adrenal nodules. Kidneys and Ureters: No hydronephrosis. No solid mass. No complex renal cystic lesion which requires follow up. Stomach and Bowel: No dilated loops of bowel seen. Peritoneum: No abnormal intraperitoneal fluid. No free air. Ventral Wall: No hernia. Abdominal Nodes: No retroperitoneal or mesenteric adenopathy by size criteria. Vessels: Aorta and inferior vena cava are normal in size. Bones: No aggressive osseous abnormality. IMPRESSION: 1. Stable tiny cyst at the tail the pancreas measuring 0.5 cm. This could represent a small IPMN. No high risk stigmata. Follow-up imaging is not required in this patient greater than 80 years old. 2. No biliary or pancreatic ductal dilatation. Dictated by: Zi Delaney M.D. on 10/23/2024 at 9:35 Approved by: Zi Delaney M.D. on 10/23/2024 at 10:04
== END ==
PROVIDERS: Family Provider Physician Assistant; PCP Family Medicine; Referring Provider Family Medicine; Visit Provider Family Medicine
DX: K86.2 Cyst of pancreas (principal)
CPT/HCPCS: 74183; A9579

== ENCOUNTER → 2025-03-11 15:14 | Outpatient (CLI) | payer MEDICARE, OTHER, SELFPAY ==
--- NOTE | 2025-03-11 15:15 | DI.MG.S_ITS ---
MM screening mammo BI: 03/11/2025. BI-RADS: 2 CLINICAL: 79-year old female for bilateral screening mammogram. Tyrer-Cuzick lifetime risk of 2.1%. No personal or first-degree family history of breast cancer. Current reported family history of breast cancer: maternal aunt and second maternal aunt. PRIOR EXAMS 02/26/2024, 04/04/2022, 03/30/2021, 03/02/2020. MAMMOGRAPHY TECHNIQUE: 2D and 3D (tomosynthesis) digital mammographic views obtained, with additional images as needed for full coverage. Current study was also evaluated with a Computer Aided Detection (CAD) system. DENSITY C. The breasts are heterogeneously dense, which may obscure small masses. MAMMOGRAPHY FINDINGS Bilateral: Benign-appearing calcifications noted. There are no suspicious masses, calcifications, or other findings in the breast. IMPRESSION: * No evidence of malignancy with benign findings. RECOMMENDATIONS Bilateral * Annual screening mammography. OVERALL ASSESSMENT CATEGORY BI-RADS-2: Benign. The [employer] recommends annual screening mammography beginning at age 40 for women with average risk of breast cancer. ELECTRONICALLY SIGNED: Ronak Alanis M.D. on 03/12/2025 at 08:18:05 AM PT Interpreting Station ID: [id number]
== END ==
LOC: MAMMO 15:14
PROVIDERS: Family Provider Physician Assistant; PCP Family Medicine; Referring Provider Family Medicine; Visit Provider Family Medicine
DX: Z12.31 Encounter for screening mammogram for malignant neoplasm of breast (principal); Z80.3 Family history of malignant neoplasm of breast; R92.333 Mammographic heterogeneous density, bilateral breasts
CPT/HCPCS: 77063; 77067